=== PATIENT | male | born 1945 | race Hispanic/Latino ===

== ENCOUNTER 2019-04-25 06:58 | Emergency (ER) | payer MEDICARE ==
--- NOTE | 2019-04-25 07:44 | RAD ---
RADIOGRAPH CHEST 2 VIEWS: DATE: 04/25/2019 HISTORY: Chest pain FINDINGS: There is no airspace density, pulmonary edema, pleural effusion, pneumothorax, or cardiomegaly. IMPRESSION: No acute cardiopulmonary findings.
== END 2019-04-25 07:58 | disposition home or self-care (01) ==
LOC: ERS 06:58
DX: J20.9 Acute bronchitis, unspecified (principal); E11.9 Type 2 diabetes mellitus without complications; E78.5 Hyperlipidemia, unspecified; I10 Essential (primary) hypertension; F43.10 Post-traumatic stress disorder, unspecified; Z79.899 Other long term (current) drug therapy; Z79.4 Long term (current) use of insulin
CPT/HCPCS: 71046

== ENCOUNTER 2019-05-22 08:41 | Outpatient (CLI) | payer OTHER ==
--- NOTE | 2019-05-22 09:57 | CT ---
CT ABDOMEN PELVIS WITH ORAL AND IV CONTRAST: HISTORY: Digestive disorder, abdominal pain pain. Neoplasm of the appendix. COMPARISON: None FINDINGS: There is a 6 cm nodule in the anterior aspect of the right upper lobe. The liver, spleen, pancreas, left adrenal gland are normal. The patient is status post right nephrect christopher and adrenalectomy. A small low-density lesion in the left renal cortex is too small to characterize.No calcific gallstones are seen. No free air, free fluid or lymphadenopathy is noted in the abdomen or pelvis. The small bowel loops a re not abnormally dilated. There are vascular calcifications without evidence of aneurysmal dilatation of the abdominal aorta. There are degenerative changes in the spine. No osteolytic or oste oblastic lesions are seen. There is mild enlargement of the prostate gland. A fat-containing left inguinal hernia is present. IMPRESSION: 1. Indeterminate 6 mm right lung nodule. 2. Status post right nephrectomy. 3. Mild prostatic enlargement.
[2019-05-22] MEDS ORDERED: ISOVUE-370 76%-LOCM 1 ML ONE (10:14)
== END 2019-05-22 08:42 | disposition home or self-care (01) ==
LOC: BICCT 08:41
PROVIDERS: ATTEND Surgery
DX: C18.1 Malignant neoplasm of appendix (principal); R91.1 Solitary pulmonary nodule; N40.0 Benign prostatic hyperplasia without lower urinary tract symptoms; Z90.5 Acquired absence of kidney
CPT/HCPCS: 74177; 82565; Q9966

== ENCOUNTER 2019-07-25 12:25 | Outpatient (CLI) | payer OTHER ==
[2019-07-25 14:05] LABS: #Eosinphils 0.3 thou/uL (0.0-0.7); #Lymphocytes 1.4 thou/uL (1.20-3.40); #Monocytes 0.6 thou/uL (0.11-0.59); #Neutrophils 5.9 thou/uL (1.40-6.50); %Basophils 0.3 % (0.0-1.0); %Lymphocytes 16.9 % (21.0-51.0); %Monocytes 7.4 % (0.0-10.0); %Neutrophils 71.4 % (42.0-75.0); Hemoglobin 13.8 g/dL (14.0-18.0); Mean Corpuscular HGB CONC 34.4 g/dL (32.0-36.0); Mean Corpuscular Hemoglobin 33.1 pg (27.0-31.0); Mean Corpuscular Volume 96.2 fL (78.0-98.0); Mean Platelet Volume 6.6 fL (7.4-10.4); Platelet Count 249 thou/uL (130-400); RBC Distribution Width 12.6 % (11.5-14.5); Red Blood Cell (RBC) Count 4.16 mill/uL (4.70-6.10); White Blood Cell (WBC) Count 8.3 thou/uL (4.8-10.8)
[2019-07-25 14:09] LABS: INR-International Normal Ratio 1.2; Prothrombin Time 14.9 SEC (12.0-14.7)
[2019-07-25 14:24] LABS: Anion Gap 11 mmol/L (10-20); BUN (Urea Nitrogen) 12 mg/dL (8.4-25.7); Calc. Creatinine Clearance 0 mL/min (70-130); Calcium 9.4 mg/dL (7.8-10.44); Carbon Dioxide 25 mmol/L (23-31); Chloride 105 mmol/L (98-107); Estimated GFR-MDRD 51; Glucose 153 mg/dL (83-110); Sodium 137 mmol/L (136-145)
[2019-07-25 14:28] LABS: Bacteria/HPF 1+ HPF (None Seen); Bilirubin Negative (Negative); Blood, Urine Negative (Negative); Clarity Clear (Clear); Glucose, Urine (Dipstick) Normal (Negative); Leukocyte Negative Leu/uL (Negative); Nitrite Negative (Negative); Protein, Urine (Dipstick) Negative (Neg-Trace); RBC/HPF 0-3 HPF (0-3); Squamous Epithelial None Seen HPF (0-3); Urobilinogen Normal mg/dL (Less than 2); WBC/HPF 0-3 HPF (0-3)
--- NOTE | 2019-07-25 20:43 | EKG ---
Test Reason : Blood Pressure : / mmHG Vent. Rate : 050 BPM Atrial Rate : 050 BPM P-R Int : 204 ms QRS Dur : 082 ms QT Int : 416 ms P-R-T Axes : 023 017 022 degrees QTc Int : 379 ms Sinus bradycardia with sinus arrhythmia Possible Inferior infarct , age undetermined Abnormal ECG When compared with ECG of 12-MAY-2017 12:30, No significant change was found Confirmed by TYSHAWN WALTERS, DR. Barraza ([id number]) on 07/25/2019 8:43:20 PM Referred By: SANDRA Confirmed By:DR. Christi VILLAGRAN MD
== END 2019-07-25 12:26 | disposition home or self-care (01) ==
LOC: LABBT 12:25
PROVIDERS: ATTEND Orthopaedic Surgery
DX: Z01.818 Encounter for other preprocedural examination (principal); M17.12 Unilateral primary osteoarthritis, left knee
CPT/HCPCS: 80048; 81001; 85025; 85610; 87081; 93005; 93010

== ENCOUNTER 2019-07-25 13:00 | Inpatient (IN) | payer MEDICARE, OTHER ==
[2019-07-25 12:30] VITALS: BMI 32.4
--- NOTE | 2019-08-01 09:30 | HP ---
HISTORY OF PRESENT ILLNESS: The patient is a 73-year-old male with a long history of progressive problems with left knee without injury. He has had previous debridement 2 years ago, which gave initial relief, but he has had progressive problems despite rest, restriction of activities, anti-inflammatory medications, and cortisone injections. The pain is now interfering with day-to-day activities including walking, getting dressed, and sleeping. The patient had a previous right total knee replacement in September 2013 by me with good results. PAST HISTORY: Please see the old chart. The patient has history of hypertension, diabetes, thyroid replacement, renal carcinoma, atherosclerotic cardiovascular disease, previous right nephrectomy, previous rotator cuff surgery and lumbar decompression. CURRENT MEDICATIONS: Include 1. Insulin. 2. Ranitidine. 3. Cyproheptadine. 4. Lipitor. 5. Gabapentin. 6. Vitamin D. 7. Temazepam. 8. Losartan. 9. Risperidone. 10. Duloxetine. ALLERGIES: HE IS ALLERGIC TO PENICILLIN, QUETIAPINE, HYDROCODONE AND AMLODIPINE. FAMILY HISTORY: Otherwise unremarkable. SOCIAL HISTORY: Otherwise unremarkable. REVIEW OF SYSTEMS: Otherwise unremarkable. PHYSICAL EXAMINATION: GENERAL: Reveals a healthy male. HEENT: Unremarkable. NECK: Supple. CHEST: Clear. HEART: Regular rate, rhythm. ABDOMEN: Soft, nontender. RECTAL: Deferred. GENITAL: Deferred: EXTREMITIES: Pertinent findings of the left knee. There is no effusion. There is slight psoriatic lesions of the anterior knee, but no signs of infection. There is mild varus deformity. There is tenderness and crepitus over the medial joint line. There are healed arthroscopy puncture sites. Range of motion is 5 to 105 degrees. There is crepitus with range of motion. There is no instability. NEUROVASCULAR: Intact. Pulses are 2+. DIAGNOSTIC STUDIES: X-rays of the left knee reveal [id number] collapse medially with progression from previous x-rays. IMPRESSION: 1. Posttraumatic degenerative arthritis, left knee, possible component of psoriatic arthritis. 2. Status post right total knee replacement. 3. Adult onset diabetes. 4. Hypertension. 5. History of renal cancer status post right nephrectomy. PLAN: Right total knee replacement. The nature of surgery, length, recovery, and potential complications such as infection, loss of motion, incomplete relief, delayed wound healing, neurovascular injury, thromboembolic phenomena, possible transfusion, need for revision were discussed in detail. Job ID: [id number]
[2019-08-05] MEDS ORDERED: Levofloxacin 500 mg/D5W 100 ml Premix Bag ONE (06:02)
[2019-08-05] MEDS ORDERED: Tranexamic Acid 1,000 MG/10 ML VIAL ONE ×2 (06:02→09:11)
[2019-08-05] MEDS ORDERED: Sodium Chloride 0.9% 100 ML ONE (06:02)
[2019-08-05] MEDS ORDERED: Vancomycin HCl 1.5 GM in Sodium Chloride 0.9% 250 ML 300 ML IVPB SCH ×2 (06:15→12:00)
[2019-08-05] MEDS ORDERED: Lidocaine 1% (PF) 30 ML VIAL ONE (06:29)
[2019-08-05] MEDS ORDERED: Fentanyl 100 MCG/2 ML VIAL ONE (06:29)
[2019-08-05] MEDS ORDERED: Midazolam HCl 2 mg/2 ml Vial ONE (06:29)
[2019-08-05] MEDS ORDERED: Lidocaine 1% w/Epinephrine 1:100K 20 ML VIAL ONE (06:38)
[2019-08-05] MEDS ORDERED: Bupivacaine/Epinephrine 0.25% 30 ML VIAL ONE (06:38)
[2019-08-05] MEDS ORDERED: Ropivacaine 0.2% 550 ML 550 ML NERVE BLCK SCH (07:25)
[2019-08-05] MEDS ORDERED: Ondansetron PF 4 MG/2 ML Vial IVP PRN ×2 (07:25→09:45)
[2019-08-05] MEDS ORDERED: Promethazine HCl 25 MG/ML VIAL IM PRN ×2 (07:25→08:01)
[2019-08-05] MEDS ORDERED: Zolpidem Tartrate 5 MG TAB PO PRN ×2 (07:25→09:45)
[2019-08-05] MEDS ORDERED: traMADol HCl 50 MG TAB PO PRN ×2 (07:25→09:45)
[2019-08-05] MEDS ORDERED: Promethazine HCl 25 MG/ML VIAL SLOW IVP PRN ×2 (08:01→09:45)
[2019-08-05] MEDS ORDERED: Ondansetron HCl/PF 4 MG/2 ML Vial IVP PRN (08:01)
[2019-08-05] MEDS ORDERED: Tranexamic Acid 1,000 MG in Sodium Chloride 0.9% 100 ML IVPB SCH (09:15)
[2019-08-05] MEDS ORDERED: Promethazine HCl 25 MG/ML VIAL ONE (09:32)
--- NOTE | 2019-08-05 09:35 | RAD ---
EXAM: Left knee: 2 views INDICATIONS: Postop knee replacement COMPARISON: None. FINDINGS: Postop changes are noted. Knee prosthesis is been placed. Components appear in adequate pos ition and alignment. IMPRESSION: Postop findings
[2019-08-05] MEDS ORDERED: diphenhydrAMINE 25 MG CAP PO PRN (09:45)
[2019-08-05] MEDS ORDERED: Acetaminophen 325 MG TAB PO PRN (09:45)
[2019-08-05] MEDS ORDERED: Temazepam 15 MG CAP PO PRN (09:45)
[2019-08-05] MEDS ORDERED: Fentanyl 100 MCG/2 ML VIAL SLOW IVP PRN ×2 (09:45)
[2019-08-05] MEDS ORDERED: CLOBETASOL TOP PRN (12:30)
--- NOTE | 2019-08-05 14:56 | OP ---
DATE OF PROCEDURE: 08/05/2019 SPECIALTY SALES CONSULTANT: Shea Mendenhall PA-C ANESTHESIA: General plus adductor canal and sciatic nerve blocks. PREOPERATIVE DIAGNOSIS: Degenerative arthritis, left knee. POSTOPERATIVE DIAGNOSIS: Degenerative arthritis, left knee. PROCEDURE PERFORMED: Left total knee replacement with cemented Latisha Triathlon components with computer-assisted navigation (#4 femoral component, #4 primary tibial baseplate with 9 mm CS plastic insert, and A32 all-plastic patellar component). DESCRIPTION OF PROCEDURE: After satisfactory anesthesia was induced in supine position, sequential compression device was applied to the nonoperative leg throughout the procedure. The left leg was then prepped and draped in routine sterile fashion. The leg was elevated and exsanguinated with an Esmarch bandage and the tourniquet inflated to 250 mmHg. A gently curved medial parapatellar incision was made, carried down through the subcutaneous tissues. Bleeding points were controlled with Bovie cautery. Medial parapatellar arthrotomy was performed. Patella was dislocated laterally and portion of the fat pad excised for exposure. There was marked degenerative arthritis of the knee especially medially with large areas of exposed bone. Meniscal remnants and osteophytes were removed. Using this appropriate guides and [employer] pinless navigation system, the distal femoral and proximal tibial articular surfaces were excised with an oscillating saw to accept the trial components. It was felt that #4 femoral component and #4 primary tibial baseplate with 9 mm CS plastic insert gave appropriate size, fit, stability, and correction of the preoperative deformity. The patellar articular surface was excised to accept all-plastic A32 patellar component. There was good range of motion of the knee and good patellar tracking. The trial components were removed. The knee was copiously irrigated with pulsatile lavage. The bony surfaces were thoroughly cleaned and dried. The permanent components were then cemented in a single stage using one package of cement premixed with 1 g of tobramycin powder. Excess cement was removed. There was again good fit and stability of the components. The knee was copiously irrigated with pulsatile lavage. The medial retinaculum and quadriceps mechanism was closed with interrupted #2 Vicryl and a running #2 Quill. Skin and subcutaneous tissues were infiltrated with 30 mL of 0.25% Marcaine with epinephrine. The subcutaneous tissue was closed with a running 0 Quill suture and the skin closed with running subcuticular 3-0 Monoderm and SurgiSeal skin adhesive. A sterile bulky compressive dressing was applied. The tourniquet was deflated after 80 minutes. The foot promptly pinked up and there were good pulses. A sequential compression device was applied to the operated leg. He was awakened, taken to the recovery room in stable condition. There were no apparent intraoperative complications. The estimated blood loss was less than 100 mL. Job ID: [id number]
[2019-08-05] MEDS: Gabapentin 400 MG CAP PO SCH ×2 (15:29→20:04)
[2019-08-05] MEDS: Sodium Chloride 0.9% 1,000 ML IV SCH ×2 (15:32→20:01)
[2019-08-05] MEDS: traMADol HCl 50 MG TAB PO PRN (20:03)
[2019-08-05] MEDS: Senokot S 8.6-50 MG TAB PO SCH (20:04)
[2019-08-05] MEDS: Aspirin 81 mg Enteric Coated Tablet PO SCH (20:04)
[2019-08-05] MEDS: Atorvastatin Calcium 40 MG TAB PO SCH (20:04)
[2019-08-05] MEDS: Famotidine 20 MG TAB PO SCH (20:04)
[2019-08-05] MEDS: Losartan 25 MG TAB PO SCH (20:06)
[2019-08-05] MEDS ORDERED: Dextrose 50% Abboject 50 ML SYRINGE SLOW IVP PRN (20:14)
[2019-08-05] MEDS ORDERED: Dextrose 5% in Water 1,000 ML IV PRN (20:14)
[2019-08-05] MEDS ORDERED: ERGOCALCIFEROL 2000 UNIT PO SCH (21:00)
[2019-08-05] MEDS: Cyproheptadine 4 MG TAB PO SCH (21:28)
[2019-08-05] MEDS: HumuLIN 70/30 (300 UNITS/3 ML VIAL) SC SCH (21:28)
--- NOTE | 2019-08-05 21:53 | PDOC.EVN ---
Event Note - Event Note Event Note: [id number] HP
[2019-08-06] MEDS: Fentanyl 100 MCG/2 ML VIAL IV PRN ×3 (00:08→12:19)
--- NOTE | 2019-08-06 01:03 | HP ---
CHIEF COMPLAINT: Medical management. REQUESTING PHYSICIAN/SERVICE: Orthopedics. HISTORY OF PRESENT ILLNESS: Mr. Garcia is a 73-year-old male with past medical history of diabetes mellitus, thyroid disease, renal carcinoma, right nephrectomy, hyperlipidemia, among others; underwent right total knee replacement earlier today. Postoperatively, the patient was found to be hyperglycemic with his blood sugar in the 200s. The patient takes insulin at home. No other complaints at this time. PAST MEDICAL HISTORY: 1. Hypertension. 2. Diabetes mellitus. 3. Renal cell carcinoma. 4. Hyperlipidemia. PAST SURGICAL HISTORY: Nephrectomy. SOCIAL HISTORY: As listed per the chart. FAMILY HISTORY: Reviewed and noncontributory. HOME MEDICATIONS: Please see home medication reconciliation form for updated medications. REVIEW OF SYSTEMS: Review of 14 systems negative except what is mentioned in history of present illness. PHYSICAL EXAMINATION: GENERAL: The patient is awake, alert, does not appear to be in acute distress. VITAL SIGNS: Blood pressure 140/70, respirations 18, temperature 97.7, pulse oximetry 97% on room air. HEAD AND NECK: Normocephalic, atraumatic. Neck is supple. No JVD. CHEST: Clear bilateral air entry. HEART: S1, S2. Regular. ABDOMEN: Soft, nontender. Bowel sounds present. NEUROLOGIC: Awake, alert, and oriented. No focal deficits. PSYCHIATRIC: Unable to assess. EXTREMITIES: No clubbing or cyanosis. LABORATORY DATA: Blood glucose been ranging between 210-168. ASSESSMENT: 1. Postoperative hyperglycemia. 2. Diabetes mellitus type 2. 3. Status post right total knee replacement. 4. Hypertension. 5. Hyperlipidemia. 6. History of renal cell carcinoma. PLAN: 1. We will start the patient on sliding scale with insulin coverage, also will add basal insulin. 2. Continue patient's home medications. 3. DVT prophylaxis as per Orthopedics. Thank you for consulting us, we will follow the patient as needed. Job ID: [id number]
[2019-08-06 05:48] LABS: Hemoglobin 12.2 g/dL (14.0-18.0); Mean Corpuscular HGB CONC 34.9 g/dL (32.0-36.0); Mean Corpuscular Hemoglobin 33.2 pg (27.0-31.0); Mean Corpuscular Volume 95.2 fL (78.0-98.0); Mean Platelet Volume 6.6 fL (7.4-10.4); Platelet Count 230 thou/uL (130-400); RBC Distribution Width 12.5 % (11.5-14.5); Red Blood Cell (RBC) Count 3.66 mill/uL (4.70-6.10); White Blood Cell (WBC) Count 14.6 thou/uL (4.8-10.8)
[2019-08-06] MEDS: HumaLOG 300 UNITS/3 ML VIAL SC PRN ×3 (06:42→16:54)
[2019-08-06] MEDS: Sodium Chloride 0.9% 1,000 ML IV SCH ×2 (08:11→17:45)
[2019-08-06] MEDS: Multivitamin W/ Minerals 1 TAB PO SCH (08:43)
[2019-08-06] MEDS: Senokot S 8.6-50 MG TAB PO SCH ×2 (08:43→21:03)
[2019-08-06] MEDS: Aspirin 81 mg Enteric Coated Tablet PO SCH ×2 (08:43→21:03)
[2019-08-06] MEDS: Famotidine 20 MG TAB PO SCH ×2 (08:43→21:03)
[2019-08-06] MEDS: HumuLIN 70/30 (300 UNITS/3 ML VIAL) SC SCH ×2 (08:44→21:11)
[2019-08-06] MEDS: Gabapentin 400 MG CAP PO SCH ×3 (08:44→21:03)
[2019-08-06] MEDS: Ropivacaine HCl/PF 250 ML in Premix Bag 1 BAG NERVE BLCK SCH (12:18)
[2019-08-06] MEDS: Acetaminophen 500 MG TAB PO SCH (18:05)
--- NOTE | 2019-08-06 18:48 | PDOC.HOSPP ---
- Subjective Encounter Date: 08/06/19 Encounter Time: 18:00 Subjective: Patient is doing well. He had left knee surgery, states his pain is well controlled. No tingling or numbness. He states his blood sugars at home are typically in the 120's. He takes lantus 50 units twice daily at home. - Objective Vital Signs & Weight: Vital Signs (12 hours) Temp Pulse Resp BP BP Pulse Ox 08/06/19 15:11 98.7 F 100 20 163/72 H 92 L 08/06/19 11:15 98.3 F 88 18 156/71 H 93 L 08/06/19 08:44 92 L 08/06/19 08:02 98.1 F 95 16 134/72 92 L Weight Admit Weight 195 lb Weight 195 lb I&O: 08/05/19 08/06/19 08/07/19 06:59 06:59 06:59 Intake Total 1650 1250 Output Total 1700 575 Balance -50 675 Result Diagrams: 08/06/19 04:48 Additional Labs: Accuchecks 08/06/19 08/06/19 08/06/19 15:19 11:23 05:33 POC Glucose 213 H 215 H 199 H 08/05/19 21:17 POC Glucose 216 H Hospitalist ROS - Medication Medications: Active Medications Generic Name Dose Route Start Last Admin Trade Name Freq PRN Reason Stop Dose Admin Acetaminophen 1,000 mg 08/06/19 18:00 08/06/19 18:05 Tylenol PO 08/08/19 18:01 1,000 mg Q6HR CARYL Administration Aspirin 81 mg 08/05/19 21:00 08/06/19 08:43 Ecotrin PO 81 mg BID CARYL Administration Atorvastatin Calcium 40 mg 08/05/19 21:00 08/05/19 20:04 Lipitor PO 40 mg QPM CARYL Administration Cyproheptadine HCl 4 mg 08/05/19 21:00 08/05/19 21:28 Periactin PO 4 mg QPM CARYL Administration Famotidine 20 mg 08/05/19 21:00 08/06/19 08:43 Pepcid PO 20 mg BID CARYL Administration Fentanyl 50 mcg 08/05/19 07:25 08/06/19 12:19 Sublimaze IV 50 mcg Q1H PRN Administration Breakthrough Pain Gabapentin 400 mg 08/05/19 15:00 08/06/19 15:01 Neurontin PO 400 mg TID CARYL Administration Ropivacaine 250 ml/ Device 250 mls @ 0 mls/hr 08/05/19 09:27 08/06/19 12:18 NERVE BLCK 250 mls INF CARYL Administration As Directed Sodium Chloride 1,000 mls @ 100 mls/hr 08/05/19 09:45 08/06/19 17:45 Normal Saline 0.9% IV Not Given .Q10H CARYL Insulin Human Isoph/Insulin Regular 50 units 08/05/19 21:00 08/06/19 08:44 Humulin 70/30 SC 50 units BID CARYL Administration Insulin Human Lispro 0 units 08/05/19 20:14 08/06/19 16:54 Humalog SC 3 unit .MILD SLIDING SCALE PRN Administration Mild Correctional Scale Iron/Minerals/Multivitamins 1 tab 08/06/19 09:00 08/06/19 08:43 Theragran M PO 1 tab DAILY CARYL Administration Losartan Potassium 25 mg 08/05/19 21:00 08/05/19 20:06 Cozaar PO 25 mg QPM CARYL Administration Senna/Docusate Sodium 2 tab 08/05/19 21:00 08/06/19 08:43 Senokot S PO 2 tab BID CARYL Administration Tramadol HCl 100 mg 08/05/19 07:25 08/05/19 20:03 Ultram PO 100 mg Q6H PRN Administration Moderate Pain 4-6 - Exam General Appearance: NAD, awake alert Eye: PERRL, anicteric sclera ENT: normocephalic atraumatic, no oropharyngeal lesions Neck: supple, no JVD, no thyromegaly Heart: RRR, no murmur, no gallops, no rubs Respiratory: CTAB, no wheezes, no rales, no ronchi Gastrointestinal: soft, non-tender, non-distended Extremities: no cyanosis, no clubbing, no edema Skin: normal turgor, no lesions, no rashes Neurological: cranial nerve grossly intact, normal sensation to touch, no focal deficits, no new deficit Musculoskeletal: normal tone, no muscle wasting Musculoskeletal - other findings: Left knee tenderness from sugery Psychiatric: normal affect, normal behavior, A&O x 3 Hosp A/P - Plan This is a 73 year old male with history of diabetes post hip replacement S/p left knee replacement - care per ortho - on tramadol prn Type II diabetes - blood sugars 199 to 268. Will increase humulin to 52 units bid - continue diabetic diet Leukocytosis - WBC 14.6, likely reactive from surgery. Continue to trend Anemia - 12.2, patient has chronic anemia stable Hypertension - contniue losartan, BP slightly elevated but possibly from pain. Continue to monitor
[2019-08-06 19:04] LABS: Anion Gap 14 mmol/L (10-20); BUN (Urea Nitrogen) 15 mg/dL (8.4-25.7); Calc. Creatinine Clearance 54 mL/min (70-130); Carbon Dioxide 20 mmol/L (23-31); Chloride 104 mmol/L (98-107); Estimated GFR-MDRD 46; Glucose 168 mg/dL (83-110); Potassium 4.1 mmol/L (3.5-5.1); Sodium 134 mmol/L (136-145)
[2019-08-06] MEDS: Losartan 25 MG TAB PO SCH (21:03)
[2019-08-06] MEDS: risperiDONE 1 MG TAB PO SCH (21:03)
[2019-08-06] MEDS: Atorvastatin Calcium 40 MG TAB PO SCH (21:04)
[2019-08-06] MEDS: Insulin Glargine 10 UNITS in Pre-Filled Syringe 1 EACH SC SCH (21:10)
[2019-08-06] MEDS: Cyproheptadine 4 MG TAB PO SCH (22:49)
[2019-08-07] MEDS ORDERED: Sodium Chloride 0.9% 500 ML IV SCH (00:15)
[2019-08-07] MEDS: Acetaminophen 500 MG TAB PO SCH ×4 (01:04→17:29)
[2019-08-07 05:42] LABS: Anion Gap 12 mmol/L (10-20); BUN (Urea Nitrogen) 18 mg/dL (8.4-25.7); Calc. Creatinine Clearance 53 mL/min (70-130); Calcium 8.1 mg/dL (7.8-10.44); Carbon Dioxide 20 mmol/L (23-31); Chloride 105 mmol/L (98-107); Estimated GFR-MDRD 45; Glucose 116 mg/dL (83-110); Sodium 133 mmol/L (136-145)
[2019-08-07 05:51] LABS: Band 10 % (5-11); Eosinophils 2 % (0-10); Hemoglobin 10.8 g/dL (14.0-18.0); Lymphocytes 9 % (21-51); MDiff Complete? YES; Mean Corpuscular HGB CONC 33.2 g/dL (32.0-36.0); Mean Corpuscular Hemoglobin 32.2 pg (27.0-31.0); Mean Corpuscular Volume 96.9 fL (78.0-98.0); Mean Platelet Volume 6.5 fL (7.4-10.4); Monocytes 12 % (0-10); Myelocyte 1 % (0-0); Neutrophil 66 % (42-75); Platelet Count 204 thou/uL (130-400); RBC Distribution Width 12.8 % (11.5-14.5); Red Blood Cell (RBC) Count 3.37 mill/uL (4.70-6.10); White Blood Cell (WBC) Count 13.3 thou/uL (4.8-10.8)
[2019-08-07] MEDS: Sodium Chloride 0.9% 1,000 ML IV SCH (06:31)
[2019-08-07] MEDS: Multivitamin W/ Minerals 1 TAB PO SCH (08:53)
[2019-08-07] MEDS: Aspirin 81 mg Enteric Coated Tablet PO SCH ×2 (08:53→21:34)
[2019-08-07] MEDS: Famotidine 20 MG TAB PO SCH ×2 (08:53→21:35)
[2019-08-07] MEDS: Senokot S 8.6-50 MG TAB PO SCH ×2 (08:53→21:34)
[2019-08-07] MEDS: Gabapentin 400 MG CAP PO SCH ×3 (08:54→21:35)
[2019-08-07] MEDS: traMADol HCl 50 MG TAB PO PRN (09:32)
[2019-08-07] MEDS: HumuLIN 70/30 (300 UNITS/3 ML VIAL) SC SCH ×2 (09:33→21:35)
[2019-08-07] MEDS: Ropivacaine HCl/PF 250 ML in Premix Bag 1 BAG NERVE BLCK SCH (11:21)
[2019-08-07] MEDS: HumaLOG 300 UNITS/3 ML VIAL SC PRN ×3 (12:25→21:36)
--- NOTE | 2019-08-07 13:34 | PDOC.HOSPP ---
- Subjective Encounter Date: 08/07/19 Encounter Time: 13:33 Subjective: The patient is doing well. He worked with physical therapy and did some leg lifting exercises and knee exercises. The patient states this morning he ate strawberry, pear and ice cream for breakfast. Fasting blood sugar 130 this morning but increased in prandial to 200. Advised to avoid ice cream. At home he normally drinks glucerna and eats fruit for dinner. - Objective Vital Signs & Weight: Vital Signs (12 hours) Temp Pulse Resp BP BP BP Pulse Ox 08/07/19 12:00 98.3 F 84 16 160/81 H 96 08/07/19 08:15 96 08/07/19 08:06 97.5 F L 84 18 136/74 96 08/07/19 03:53 98.3 F 89 18 104/63 93 L 08/07/19 03:23 90 99/62 Weight Admit Weight 195 lb Weight 195 lb I&O: 08/06/19 08/07/19 08/08/19 06:59 06:59 06:59 Intake Total 1650 2250 Output Total 1700 575 Balance -50 1675 Result Diagrams: 08/07/19 04:48 08/07/19 04:48 Additional Labs: Accuchecks 08/07/19 08/07/19 08/07/19 11:59 09:03 05:07 POC Glucose 205 H 197 H 130 H 08/06/19 08/06/19 21:12 15:19 POC Glucose 180 H 213 H Hospitalist ROS - Review of Systems Constitutional: denies: chills, sweats - Medication Medications: Active Medications Generic Name Dose Route Start Last Admin Trade Name Jayant PRN Reason Stop Dose Admin Acetaminophen 1,000 mg 08/06/19 18:00 08/07/19 11:36 Tylenol PO 08/08/19 18:01 1,000 mg Q6HR CARYL Administration Aspirin 81 mg 08/05/19 21:00 08/07/19 08:53 Ecotrin PO 81 mg BID CARYL Administration Atorvastatin Calcium 40 mg 08/05/19 21:00 08/06/19 21:04 Lipitor PO 40 mg QPM CARYL Administration Cyproheptadine HCl 4 mg 08/05/19 21:00 08/06/19 22:49 Periactin PO 4 mg QPM CARYL Administration Famotidine 20 mg 08/05/19 21:00 08/07/19 08:53 Pepcid PO 20 mg BID CARYL Administration Fentanyl 50 mcg 08/05/19 07:25 08/06/19 12:19 Sublimaze IV 50 mcg Q1H PRN Administration Breakthrough Pain Gabapentin 400 mg 08/05/19 15:00 08/07/19 08:54 Neurontin PO 400 mg TID CARYL Administration Ropivacaine 250 ml/ Device 250 mls @ 0 mls/hr 08/05/19 09:27 08/07/19 11:21 NERVE BLCK 250 mls INF CARYL Administration As Directed Insulin Glargine 10 units/ 0.1 mls @ 0 mls/hr 08/06/19 21:00 08/06/19 21:10 Miscellaneous Medication SC 0.1 mls HS CARYL Administration Insulin Human Isoph/Insulin Regular 52 units 08/06/19 21:00 08/07/19 09:33 Humulin 70/30 SC 52 unit BID CARYL Administration Insulin Human Lispro 0 units 08/05/19 20:14 08/07/19 12:25 Humalog SC 3 unit .MILD SLIDING SCALE PRN Administration Mild Correctional Scale Iron/Minerals/Multivitamins 1 tab 08/06/19 09:00 08/07/19 08:53 Theragran M PO 1 tab DAILY CARYL Administration Losartan Potassium 25 mg 08/05/19 21:00 08/06/19 21:03 Cozaar PO 25 mg QPM CARYL Administration Risperidone 2 mg 08/06/19 21:00 08/06/19 21:03 Risperidone PO 2 mg HS CARYL Administration Senna/Docusate Sodium 2 tab 08/05/19 21:00 08/07/19 08:53 Senokot S PO 2 tab BID CARYL Administration Tramadol HCl 100 mg 08/05/19 07:25 08/07/19 09:32 Ultram PO 100 mg Q6H PRN Administration Moderate Pain 4-6 - Exam General Appearance: NAD, awake alert Eye: PERRL, anicteric sclera ENT: normocephalic atraumatic, no oropharyngeal lesions Neck: supple, no JVD Heart: RRR, no murmur, no gallops, no rubs Respiratory: CTAB, no wheezes, no rales Gastrointestinal: soft, non-tender, non-distended Extremities: no cyanosis, no clubbing, no edema Skin: normal turgor, no lesions, no rashes Neurological: cranial nerve grossly intact, normal sensation to touch, no weakness, no focal deficits Musculoskeletal: normal tone, normal strength, no muscle wasting Psychiatric: normal affect, normal behavior, A&O x 3, oriented to person Hosp A/P - Plan This is a 73 year old male with history of diabetes post hip replacement, consulting for med management S/p left knee replacement - care per ortho - on tramadol prn for pain. Patient getting PT Type II diabetes - blood sugars 130 to 200. Increased humulin to 52 units bid, patient advised to avoid ice cream/grapes (which he loves) - continue sliding scale - continue diabetic diet Leukocytosis - downtrending to 13.3, likely reactive Anemia - 10.8, B12 and folate normal. Consider FOBT Hypertension -BP 91-160. Continue to monitor CKD stage III - creatinine 1.48, stable
[2019-08-07] MEDS: Cyproheptadine 4 MG TAB PO SCH (21:34)
[2019-08-07] MEDS: Losartan 25 MG TAB PO SCH (21:34)
[2019-08-07] MEDS: Atorvastatin Calcium 40 MG TAB PO SCH (21:35)
[2019-08-07] MEDS: risperiDONE 1 MG TAB PO SCH (21:35)
[2019-08-07] MEDS: Insulin Glargine 10 UNITS in Pre-Filled Syringe 1 EACH SC SCH (21:36)
[2019-08-08] MEDS: Acetaminophen 500 MG TAB PO SCH ×3 (00:06→11:45)
[2019-08-08] MEDS: Multivitamin W/ Minerals 1 TAB PO SCH (09:25)
[2019-08-08] MEDS: Senokot S 8.6-50 MG TAB PO SCH (09:25)
[2019-08-08] MEDS: Famotidine 20 MG TAB PO SCH (09:25)
[2019-08-08] MEDS: Gabapentin 400 MG CAP PO SCH (09:25)
[2019-08-08] MEDS: HumuLIN 70/30 (300 UNITS/3 ML VIAL) SC SCH (09:30)
[2019-08-08 10:33] LABS: Hemoglobin 11.7 g/dL (14.0-18.0); Mean Corpuscular HGB CONC 33.3 g/dL (32.0-36.0); Mean Corpuscular Hemoglobin 32.3 pg (27.0-31.0); Mean Platelet Volume 6.5 fL (7.4-10.4); Platelet Count 250 thou/uL (130-400); RBC Distribution Width 12.5 % (11.5-14.5); Red Blood Cell (RBC) Count 3.61 mill/uL (4.70-6.10); White Blood Cell (WBC) Count 11.3 thou/uL (4.8-10.8)
[2019-08-08 10:54] LABS: Anion Gap 12 mmol/L (10-20); BUN (Urea Nitrogen) 14 mg/dL (8.4-25.7); Calc. Creatinine Clearance 55 mL/min (70-130); Calcium 9.2 mg/dL (7.8-10.44); Carbon Dioxide 21 mmol/L (23-31); Chloride 105 mmol/L (98-107); Estimated GFR-MDRD 48; Glucose 213 mg/dL (83-110); Sodium 134 mmol/L (136-145)
[2019-08-08 11:38] VITALS: BP 153/69; TEMP 97.9
[2019-08-08] MEDS: Aspirin 81 mg Enteric Coated Tablet PO SCH (11:44)
[2019-08-08] MEDS: HumaLOG 300 UNITS/3 ML VIAL SC PRN (11:48)
[2019-08-08] MEDS ORDERED: HumuLIN 70/30 (300 UNITS/3 ML VIAL) SC SCH (21:00)
[2019-08-08] MEDS ORDERED: Acetaminophen 325 MG TAB PO PRN (23:59)
== END 2019-08-08 13:30 | disposition home or self-care (01) | DRG 470 ==
LOC: SJJU 08-05 05:23
PROVIDERS: ADMIT Orthopaedic Surgery; ATTEND Orthopaedic Surgery
PROC: 0SRD0J9 Replacement of Left Knee Joint with Synthetic Substitute, Cemented, Open Approach (ICD-10-PCS; principal; 2019-08-05)
PROC: 8E0YXBZ Computer Assisted Procedure of Lower Extremity (ICD-10-PCS; 2019-08-05)
DX: M17.32 Unilateral post-traumatic osteoarthritis, left knee (principal); G47.33 Obstructive sleep apnea (adult) (pediatric); E78.5 Hyperlipidemia, unspecified; E11.65 Type 2 diabetes mellitus with hyperglycemia; D72.829 Elevated white blood cell count, unspecified; I12.9 Hypertensive chronic kidney disease with stage 1 through stage 4 chronic kidney disease, or unspecified chronic kidney disease; N18.3 Chronic kidney disease, stage 3 (moderate); E11.22 Type 2 diabetes mellitus with diabetic chronic kidney disease; Z96.651 Presence of right artificial knee joint; D63.1 Anemia in chronic kidney disease; E89.0 Postprocedural hypothyroidism; Z79.890 Hormone replacement therapy; Z90.5 Acquired absence of kidney; Z85.528 Personal history of other malignant neoplasm of kidney; Z79.4 Long term (current) use of insulin; Z79.899 Other long term (current) drug therapy; Z88.0 Allergy status to penicillin; Z88.8 Allergy status to other drugs, medicaments and biological substances
CPT/HCPCS: 36415; 36416; 80048; 82607; 82746; 85007; 85027; A4306; J1815; J1956; J2001; J2250; J2550; J2795; J3010; J3490

== ENCOUNTER 2020-03-24 09:57 | Outpatient (CLI) | payer OTHER ==
--- NOTE | 2020-03-24 14:11 | CT ---
CT OF CHEST PERFORMED WITHOUT CONTRAST ENHANCEMENT: Date: 03/24/2020 HISTORY: Follow-up pulmonary nodule. History of right nephrectomy related to cancer. COMPARISON: 05/22/2019 CT abdomen and pelvis. FINDINGS: The lungs are clear of any infiltrative process. The 6.0 mm nodular density which was seen in the rig ht lung on the previous CT examination actually lies within the minor fissure, somewhat triangular in shape, most likely an intrafissural node. Just slightly medial to this, best seen on axial image 31, is a second small 3.0 mm nodular density. It was also present on the prior exam and is unchanged. I do not appreciate any significant mediastinal or hilar adenopathy on this noncontrast study. Visualiz ed liver parenchyma shows no focal findings. IMPRESSION: Two right middle lobe pulmonary nodules, stable. One is probably an intrafissural node and the second is a small 3.0 mm nodule. POS: IVONNE
== END 2020-03-24 09:58 | disposition home or self-care (01) ==
LOC: CT 09:57
PROVIDERS: ATTEND Internal Medicine Critical Care Medicine
DX: R91.8 Other nonspecific abnormal finding of lung field (principal); D37.3 Neoplasm of uncertain behavior of appendix; Z90.5 Acquired absence of kidney
CPT/HCPCS: 71250

== ENCOUNTER 2025-07-19 17:09 | Inpatient (IN) | payer OTHER ==
[2025-07-19] MEDS ORDERED: Ondansetron PF 4 MG/2 ML Vial IVP PRN (19:28)
[2025-07-19] MEDS ORDERED: Nitroglycerin 0.4 MG TAB (25 Tab Bottle) SL PRN (19:28)
[2025-07-19 19:29] VITALS: BMI 31.8
[2025-07-19] MEDS ORDERED: Glucagon 1 MG/ML KIT IM PRN (20:37)
[2025-07-19] MEDS ORDERED: Albuterol 200 PUFF (6.7GM INHALER) INH PRN (20:43)
[2025-07-19 21:34] LABS: Osmolality, Urine 345 mOsm/kg (50-1200)
[2025-07-19 21:43] LABS: Anion Gap 21 mmol/L (10-20); BUN (Urea Nitrogen) 19 mg/dL (8.4-25.7); Calc. Creatinine Clearance 61 mL/min (70-130); Calcium 8.5 mg/dL (7.8-10.44); Carbon Dioxide 19 mmol/L (23-31); Chloride 100 mmol/L (98-107); Glucose 193 mg/dL (83-110); Potassium 4.9 mmol/L (3.5-5.1); Sodium 135 mmol/L (136-145)
[2025-07-19 22:47] LABS: Osmolality, Serum 281 mOsm/kg (280-301)
[2025-07-20 04:46] LABS: #Basophils 0.04 10x3/uL (0.0-0.2); #Eosinophils 0.04 10x3/uL (0.0-0.7); #Monocytes 1.13 10x3/uL (0.11-0.59); #Neutrophils 16.80 10x3/uL (1.40-6.50); %Basophils 0.2 % (0.0-1.0); %Eosinophils 0.2 % (0.0-10.0); %Lymphocytes 3.6 % (21.0-51.0); %Monocytes 6.0 % (0.0-10.0); %Neutrophils 89.5 % (42.0-75.0); Hematocrit 34.9 % (42.0-52.0); Hemoglobin 11.6 g/dL (14.0-18.0); Mean Corpuscular Hemoglobin 32.0 pg (27.0-31.0); Mean Corpuscular Volume 96.1 fL (78.0-98.0); Platelet Count 179 10x3/uL (130-400); Red Blood Cell (RBC) Count 3.63 mill/uL (4.70-6.10); White Blood Cell (WBC) Count 18.79 10x3/uL (4.8-10.8)
[2025-07-20 05:14] LABS: Anion Gap 13 mmol/L (10-20); BUN (Urea Nitrogen) 22 mg/dL (8.4-25.7); Calc. Creatinine Clearance 51 mL/min (70-130); Calcium 8.4 mg/dL (7.8-10.44); Carbon Dioxide 24 mmol/L (23-31); Chloride 100 mmol/L (98-107); Glucose 251 mg/dL (83-110); Magnesium 2.1 mg/dL (1.6-2.6); Potassium 5.5 mmol/L (3.5-5.1); Sodium 131 mmol/L (136-145)
[2025-07-20] MEDS: CALCIUM GLUC 1 GM/NS 50 ML 1 GM in Premix 1 BAG IVPB SCH (07:42)
[2025-07-20] MEDS: Enoxaparin 40 MG (0.4 mL) SYRINGE SC SCH (07:50)
[2025-07-20] MEDS: Albuterol 2.5 MG (3 mL) NEB NEB SCH (08:18)
[2025-07-20] MEDS: Dextrose 50% Abboject 50 ML SYRINGE SLOW IVP PRN (08:41)
[2025-07-20] MEDS ORDERED: Losartan 25 MG TAB PO SCH (09:00)
[2025-07-20 11:17] LABS: Anion Gap 14 mmol/L (10-20); BUN (Urea Nitrogen) 24 mg/dL (8.4-25.7); Calc. Creatinine Clearance 48 mL/min (70-130); Calcium 8.4 mg/dL (7.8-10.44); Carbon Dioxide 21 mmol/L (23-31); Chloride 100 mmol/L (98-107); Glucose 267 mg/dL (83-110); Potassium 4.2 mmol/L (3.5-5.1); Sodium 131 mmol/L (136-145)
[2025-07-20] MEDS ORDERED: CATH Communication Order-Pharmacy FS SCH (12:30)
[2025-07-20 14:27] LABS: Bacteria/HPF 4+ HPF (None Seen); Glucose, Urine (Dipstick) Normal (Negative); Leukocyte 500 Leu/uL (Negative); Protein, Urine (Dipstick) Negative (Neg-Trace); RBC/HPF 0-3 HPF (0-3); Specific Gravity, Urine 1.016 (1.002-1.036); WBC/HPF Greater than 50 HPF (0-3)
[2025-07-20] MEDS: HumuLIN 70/30 100 Unit/ml 10 ml Vial SC SCH (17:08)
[2025-07-20] MEDS: Acetaminophen 325 MG TAB PO PRN (20:10)
[2025-07-20] MEDS: DULoxetine 20 MG CAP PO SCH (20:38)
[2025-07-21 05:40] LABS: #Basophils 0.03 10x3/uL (0.0-0.2); #Eosinophils 0.17 10x3/uL (0.0-0.7); #Monocytes 0.87 10x3/uL (0.11-0.59); #Neutrophils 11.46 10x3/uL (1.40-6.50); %Basophils 0.2 % (0.0-1.0); %Eosinophils 1.3 % (0.0-10.0); %Lymphocytes 6.3 % (21.0-51.0); %Monocytes 6.5 % (0.0-10.0); %Neutrophils 85.2 % (42.0-75.0); Hematocrit 32.7 % (42.0-52.0); Hemoglobin 10.6 g/dL (14.0-18.0); Mean Corpuscular Hemoglobin 31.5 pg (27.0-31.0); Mean Corpuscular Volume 97.0 fL (78.0-98.0); Platelet Count 156 10x3/uL (130-400); Red Blood Cell (RBC) Count 3.37 mill/uL (4.70-6.10); White Blood Cell (WBC) Count 13.45 10x3/uL (4.8-10.8)
[2025-07-21 05:53] LABS: Anion Gap 11 mmol/L (10-20); BUN (Urea Nitrogen) 21 mg/dL (8.4-25.7); Calc. Creatinine Clearance 51 mL/min (70-130); Calcium 8.3 mg/dL (7.8-10.44); Carbon Dioxide 22 mmol/L (23-31); Chloride 106 mmol/L (98-107); Glucose 201 mg/dL (83-110); Magnesium 2.0 mg/dL (1.6-2.6); Potassium 4.3 mmol/L (3.5-5.1); Sodium 135 mmol/L (136-145)
[2025-07-21] MEDS ORDERED: Heparin 10,000 UNITS/ 10 ML VIAL ONE (06:15)
[2025-07-21] MEDS ORDERED: Nitroglycerin 50 MG/250 ML BOT 250 ML ONE (06:15)
[2025-07-21] MEDS ORDERED: PHENYLEPHRINE-NS 100 MCG/ML 10 ML SYRINGE ONE (06:15)
[2025-07-21] MEDS ORDERED: Adenosine 6 mg (2 mL) VIAL ONE (06:15)
[2025-07-21] MEDS ORDERED: Lidocaine 1% (PF) 30 ML VIAL ONE (06:15)
[2025-07-21] MEDS ORDERED: Colchicine 0.6 MG TAB PO SCH (09:00)
[2025-07-21] MEDS: Colchicine 0.3 MG TAB PO SCH (09:33)
[2025-07-21] MEDS ORDERED: Insulin NPH Human Isophane 100 UNITS/ML (10 ML VIAL) SC SCH ×2 (10:00→21:00)
[2025-07-21] MEDS: HumuLIN 70/30 100 Unit/ml 10 ml Vial SC SCH ×3 (10:36→20:43)
[2025-07-22 04:19] LABS: #Basophils 0.04 10x3/uL (0.0-0.2); #Eosinophils 0.26 10x3/uL (0.0-0.7); #Monocytes 0.78 10x3/uL (0.11-0.59); #Neutrophils 10.90 10x3/uL (1.40-6.50); %Basophils 0.3 % (0.0-1.0); %Eosinophils 2.0 % (0.0-10.0); %Lymphocytes 9.7 % (21.0-51.0); %Monocytes 5.9 % (0.0-10.0); %Neutrophils 81.6 % (42.0-75.0); Hematocrit 32.3 % (42.0-52.0); Hemoglobin 10.3 g/dL (14.0-18.0); Mean Corpuscular Hemoglobin 31.3 pg (27.0-31.0); Mean Corpuscular Volume 98.2 fL (78.0-98.0); Platelet Count 166 10x3/uL (130-400); Red Blood Cell (RBC) Count 3.29 mill/uL (4.70-6.10); White Blood Cell (WBC) Count 13.33 10x3/uL (4.8-10.8)
[2025-07-22 04:38] LABS: Anion Gap 11 mmol/L (10-20); BUN (Urea Nitrogen) 16 mg/dL (8.4-25.7); Calc. Creatinine Clearance 59 mL/min (70-130); Calcium 8.1 mg/dL (7.8-10.44); Carbon Dioxide 20 mmol/L (23-31); Chloride 108 mmol/L (98-107); Glucose 123 mg/dL (83-110); Magnesium 2.0 mg/dL (1.6-2.6); Potassium 4.3 mmol/L (3.5-5.1); Sodium 135 mmol/L (136-145)
[2025-07-22 08:16] VITALS: TEMP 97.8
[2025-07-22] MEDS: Losartan 25 MG TAB PO SCH (09:39)
[2025-07-22 11:01] VITALS: BP 120/57
[2025-07-23] MEDS ORDERED: Losartan 25 MG TAB PO SCH (09:00)
== END 2025-07-22 11:30 | disposition home or self-care (01) | DRG 314 ==
LOC: OBS 18:41 → INTOOBSV 18:41 → OBSVTOIN 07-20 15:29
PROVIDERS: ADMIT Family Medicine; ATTEND Hospitalist
DX: I31.9 Disease of pericardium, unspecified (principal); R57.0 Cardiogenic shock; E87.1 Hypo-osmolality and hyponatremia; N17.9 Acute kidney failure, unspecified; I95.1 Orthostatic hypotension; E11.9 Type 2 diabetes mellitus without complications; I10 Essential (primary) hypertension; E78.5 Hyperlipidemia, unspecified; E03.9 Hypothyroidism, unspecified; E11.40 Type 2 diabetes mellitus with diabetic neuropathy, unspecified; D64.9 Anemia, unspecified; F43.10 Post-traumatic stress disorder, unspecified; M19.90 Unspecified osteoarthritis, unspecified site; G20.A1 Parkinson's disease without dyskinesia, without mention of fluctuations; I35.0 Nonrheumatic aortic (valve) stenosis; I44.1 Atrioventricular block, second degree; G47.30 Sleep apnea, unspecified; Z79.52 Long term (current) use of systemic steroids; Z88.0 Allergy status to penicillin; Z88.8 Allergy status to other drugs, medicaments and biological substances; Z88.5 Allergy status to narcotic agent; Z98.890 Other specified postprocedural states; Z82.49 Family history of ischemic heart disease and other diseases of the circulatory system; Z83.3 Family history of diabetes mellitus; Z79.4 Long term (current) use of insulin; Z79.890 Hormone replacement therapy; Z79.84 Long term (current) use of oral hypoglycemic drugs; Z79.899 Other long term (current) drug therapy
CPT/HCPCS: 36415; 36416; 76770; 80048; 81001; 82533; 83036; 83735; 83880; 83930; 83935; 84443; 84484; 85025; 93005; 93010; 94640; 96361; 96372; 96374; 96375; G0378; J0153; J0461; J0613; J1644; J1650; J1815; J7030; J7611; J7999

== ENCOUNTER 2025-09-02 14:42 | Inpatient (IN) | payer OTHER ==
[2025-09-02 21:01] VITALS: BMI 29.5
[2025-09-02] MEDS ORDERED: Nitroglycerin 0.4 MG TAB (25 Tab Bottle) SL PRN (23:12)
[2025-09-02] MEDS ORDERED: Glucagon 1 MG/ML KIT IM PRN (23:15)
[2025-09-02] MEDS ORDERED: Acetaminophen 325 MG TAB PO PRN (23:15)
[2025-09-02] MEDS ORDERED: Calcium Carbonate 500 MG ChewTAB PO PRN (23:15)
[2025-09-02] MEDS ORDERED: Dextrose 50% Abboject 50 ML SYRINGE SLOW IVP PRN (23:15)
[2025-09-02] MEDS ORDERED: Senokot S 8.6-50 MG TAB PO PRN (23:15)
[2025-09-03 04:05] LABS: #Basophils 0.03 10x3/uL (0.0-0.2); #Eosinophils 0.43 10x3/uL (0.0-0.7); #Monocytes 0.62 10x3/uL (0.11-0.59); #Neutrophils 5.33 10x3/uL (1.40-6.50); %Basophils 0.4 % (0.0-1.0); %Eosinophils 5.7 % (0.0-10.0); %Lymphocytes 14.5 % (21.0-51.0); %Monocytes 8.2 % (0.0-10.0); %Neutrophils 70.7 % (42.0-75.0); Hematocrit 28.0 % (42.0-52.0); Hemoglobin 9.1 g/dL (14.0-18.0); Mean Corpuscular Hemoglobin 30.5 pg (27.0-31.0); Mean Corpuscular Volume 94.0 fL (78.0-98.0); Platelet Count 287 10x3/uL (130-400); Red Blood Cell (RBC) Count 2.98 mill/uL (4.70-6.10); White Blood Cell (WBC) Count 7.54 10x3/uL (4.8-10.8)
[2025-09-03 04:30] LABS: Anion Gap 14 mmol/L (10-20); BUN (Urea Nitrogen) 30 mg/dL (8.4-25.7); Calc. Creatinine Clearance 40 mL/min (70-130); Calcium 8.3 mg/dL (7.8-10.44); Carbon Dioxide 26 mmol/L (23-31); Chloride 101 mmol/L (98-107); Glucose 246 mg/dL (83-110); Magnesium 2.7 mg/dL (1.6-2.6); Potassium 4.1 mmol/L (3.5-5.1); Sodium 137 mmol/L (136-145)
[2025-09-03] MEDS: DULoxetine 20 MG CAP PO SCH (10:20)
[2025-09-03] MEDS ORDERED: PROPOFOL 200 MG/20 ML VIAL ONE (15:10)
[2025-09-03] MEDS ORDERED: Lidocaine 1% PF 5 ML VIAL ONE (15:10)
[2025-09-03] MEDS ORDERED: PHENYLEPHRINE-NS 100 MCG/ML 10 ML SYRINGE ONE (15:10)
[2025-09-04 04:34] LABS: #Basophils Less than 0.03 10x3/uL (0.0-0.2); #Eosinophils 0.38 10x3/uL (0.0-0.7); #Monocytes 0.72 10x3/uL (0.11-0.59); #Neutrophils 5.73 10x3/uL (1.40-6.50); %Basophils 0.3 % (0.0-1.0); %Eosinophils 4.9 % (0.0-10.0); %Lymphocytes 11.4 % (21.0-51.0); %Monocytes 9.3 % (0.0-10.0); %Neutrophils 73.8 % (42.0-75.0); Hematocrit 27.2 % (42.0-52.0); Hemoglobin 8.5 g/dL (14.0-18.0); Mean Corpuscular Hemoglobin 29.9 pg (27.0-31.0); Mean Corpuscular Volume 95.8 fL (78.0-98.0); Platelet Count 275 10x3/uL (130-400); Red Blood Cell (RBC) Count 2.84 mill/uL (4.70-6.10); White Blood Cell (WBC) Count 7.75 10x3/uL (4.8-10.8)
[2025-09-04 04:46] LABS: Anion Gap 9 mmol/L (10-20); BUN (Urea Nitrogen) 22 mg/dL (8.4-25.7); Calc. Creatinine Clearance 44 mL/min (70-130); Calcium 8.1 mg/dL (7.8-10.44); Carbon Dioxide 28 mmol/L (23-31); Chloride 107 mmol/L (98-107); Glucose 149 mg/dL (83-110); Potassium 4.2 mmol/L (3.5-5.1); Sodium 140 mmol/L (136-145)
[2025-09-04] MEDS: Dapagliflozin Propanediol 10 MG TAB PO SCH (09:42)
[2025-09-04] MEDS ORDERED: Iopamidol-370 76% 500 ML MDV (1 ML CHARGE) ONE (11:01)
[2025-09-04] MEDS: Enoxaparin 40 MG (0.4 mL) SYRINGE SC SCH (23:33)
[2025-09-05 04:30] LABS: #Basophils Less than 0.03 10x3/uL (0.0-0.2); #Eosinophils 0.40 10x3/uL (0.0-0.7); #Monocytes 0.55 10x3/uL (0.11-0.59); #Neutrophils 4.73 10x3/uL (1.40-6.50); %Basophils 0.3 % (0.0-1.0); %Eosinophils 5.8 % (0.0-10.0); %Lymphocytes 17.1 % (21.0-51.0); %Monocytes 8.0 % (0.0-10.0); %Neutrophils 68.5 % (42.0-75.0); Hematocrit 29.4 % (42.0-52.0); Hemoglobin 9.3 g/dL (14.0-18.0); Mean Corpuscular Hemoglobin 29.5 pg (27.0-31.0); Mean Corpuscular Volume 93.3 fL (78.0-98.0); Platelet Count 281 10x3/uL (130-400); Red Blood Cell (RBC) Count 3.15 mill/uL (4.70-6.10); White Blood Cell (WBC) Count 6.90 10x3/uL (4.8-10.8)
[2025-09-05 04:43] LABS: Anion Gap 15 mmol/L (10-20); BUN (Urea Nitrogen) 16 mg/dL (8.4-25.7); Calc. Creatinine Clearance 51 mL/min (70-130); Calcium 8.7 mg/dL (7.8-10.44); Carbon Dioxide 21 mmol/L (23-31); Chloride 110 mmol/L (98-107); Glucose 124 mg/dL (83-110); Potassium 4.5 mmol/L (3.5-5.1); Sodium 141 mmol/L (136-145)
[2025-09-05 16:43] VITALS: BP 177/74; TEMP 98.1
[2025-09-05] MEDS ORDERED: Enoxaparin 40 MG (0.4 mL) SYRINGE SC SCH (21:00)
== END 2025-09-05 16:57 | disposition home or self-care (01) | DRG 312 ==
LOC: UNDOADMIN 14:42 → PCU 14:42 → INTOOBSV 20:43 → PCU 20:43 → OBSVTOIN 09-03 16:17
PROVIDERS: ADMIT Internal Medicine; ATTEND Family Medicine
PROC: B245ZZ4 Ultrasonography of Left Heart, Transesophageal (ICD-10-PCS; principal; 2025-09-03)
DX: I95.2 Hypotension due to drugs (principal); I13.0 Hypertensive heart and chronic kidney disease with heart failure and stage 1 through stage 4 chronic kidney disease, or unspecified chronic kidney disease; I50.32 Chronic diastolic (congestive) heart failure; I24.0 Acute coronary thrombosis not resulting in myocardial infarction; F41.9 Anxiety disorder, unspecified; N40.0 Benign prostatic hyperplasia without lower urinary tract symptoms; E78.5 Hyperlipidemia, unspecified; R53.81 Other malaise; E03.9 Hypothyroidism, unspecified; E11.65 Type 2 diabetes mellitus with hyperglycemia; N18.32 Chronic kidney disease, stage 3b; W19.XXXA Unspecified fall, initial encounter; Z79.82 Long term (current) use of aspirin; R93.1 Abnormal findings on diagnostic imaging of heart and coronary circulation; Z88.0 Allergy status to penicillin; Z98.890 Other specified postprocedural states; Z88.8 Allergy status to other drugs, medicaments and biological substances; Z79.899 Other long term (current) drug therapy
CPT/HCPCS: 36415; 36416; 71270; 80048; 83735; 85025; 93306; 93312; G0378; J1650; J1815; J2704; J7030; Q9967